=== PATIENT | male | born 2000 | race American Indian/Alaskan Native ===

== ENCOUNTER 2021-09-30 20:23 | Emergency (ER) | payer OTHER ==
[2021-09-30] MEDS ORDERED: KETOROLAC 10 MG TAB PO ONE (20:55)
[2021-09-30] MEDS ORDERED: ACETAMINOPHEN W/CODEINE 300-30 MG TAB PO ONE (20:55)
[2021-09-30] MEDS ORDERED: CYCLOBENZAPRINE 10 MG TAB PO ONE (20:55)
[2021-09-30] MEDS ORDERED: DEXAMETHASONE 4 MG TAB PO ONE (20:55)
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
[2021-09-30 21:40] VITALS: BP 125/76
== END 2021-09-30 21:40 | disposition home or self-care (01) ==
LOC: ED 20:23
DX: S60.811A Abrasion of right wrist, initial encounter (principal); M54.50 Low back pain, unspecified; Z91.013 Allergy to seafood; X58.XXXA Exposure to other specified factors, initial encounter; F17.200 Nicotine dependence, unspecified, uncomplicated; Y93.89 Activity, other specified; Y92.89 Other specified places as the place of occurrence of the external cause; Y99.8 Other external cause status
CPT/HCPCS: 99282; J8540